=== PATIENT | male | born 1995 | race Caucasian/White ===

== ENCOUNTER 2016-10-27 04:08 | Emergency (ER) | payer BC ==
[~2016-10-27] VITALS: Ht 177.8 cm; Wt 84.1 kg
[2016-10-27] MEDS ORDERED: ZOFRAN8 MG PO (04:34)
[2016-10-27 05:21] LABS: ADJUSTED CALCIUM 8.8 mg/dL (8.4-10.2); ALBUMIN 4.9 gm/dL (3.5-5.0); BILIRUBIN,TOTAL 1.3 mg/dL (0.0-1.0); CALCIUM 9.5 mg/dL (8.4-10.2); CREATININE, serum 1.07 mg/dL (0.66-1.25); POTASSIUM 3.6 mmol/L (3.4-5.0); TOTAL PROTEIN 8.2 gm/dL (6.4-8.2)
[2016-10-27 05:55] VITALS: BP 119/67; PULSE 75
== END 2016-10-27 06:00 | disposition home or self-care (01) ==
LOC: COL.ER 04:08
PROVIDERS: Emergency Medicine
DX: E86.9 Volume depletion, unspecified (principal); R10.84 Generalized abdominal pain; R11.10 Vomiting, unspecified; R19.7 Diarrhea, unspecified
CPT/HCPCS: J1885; J2405; J7030

== ENCOUNTER 2017-03-16 01:55 | Emergency (ER) | payer BC ==
[~2017-03-16] VITALS: Ht 177.8 cm; Wt 84.1 kg
[~2017-03-16 01:55] MED LIST: ZOFRAN8 MG PO
[2017-03-16 02:03] VITALS: TEMP 97.7
[2017-03-16 02:14] LABS: BASO # 0.1 (0.0-0.2); BASO % 0.6 % (0.0-2.0); EOS # 0.2 (0.0-0.7); EOS % 1.7 % (0-4.0); GRAN # 5.9 (1.4-6.5); GRAN % 49.9 % (42.2-75.2); HEMATOCRIT 44.6 % (42.0-52.0); HEMOGLOBIN 15.7 g/dl (13.5-18.0); LYMPH # 4.8 (1.2-3.4); LYMPH % 40.9 % (20.0-51.0); MEAN CELL VOLUME 91 fl (80.0-100.0); MEAN CORPUSCULAR HEMOGLOBIN 32 pg (27.0-31.0); MEAN CORPUSCULAR HGB CONC 35 g/dl (33.0-37.0); MEAN PLATELET VOLUME 10.1 fl (7.4-10.4); MONO # 0.8 (0.1-0.6); MONO % 6.6 % (1.7-9.3); PLATELET COUNT 294 K/mm3 (130-400); RED BLOOD COUNT 4.91 M/mm3 (4.20-5.60); WHITE BLOOD COUNT 11.8 K/mm3 (4.8-10.8)
[2017-03-16 02:35] LABS: ADJUSTED CALCIUM 9.2 mg/dL (8.4-10.2); ALBUMIN 4.6 gm/dL (3.5-5.0); BILIRUBIN,TOTAL 0.5 mg/dL (0.0-1.0); CALCIUM 9.7 mg/dL (8.4-10.2); CREATININE, serum 0.95 mg/dL (0.66-1.25); POTASSIUM 3.3 mmol/L (3.4-5.0); TOTAL PROTEIN 7.7 gm/dL (6.4-8.2)
[2017-03-16 03:23] LABS: COLLECTION METHOD CLEAN CATCH
[2017-03-16 03:28] LABS: MUCOUS Present /lpf; PH 5 (5-8); SQUAMOUS EPITHELIAL None Seen /hpf; URINE APPEARANCE Clear; URINE BACTERIA None Seen /hpf; URINE BILIRUBIN Negative (NEGATIVE); URINE BLOOD 3+ (NEGATIVE); URINE COLOR Yellow; URINE GLUCOSE Negative (NEGATIVE); URINE KETONE Negative (NEGATIVE); URINE LEUKOCYTE ESTERASE Negative (NEGATIVE); URINE PROTEIN(semi-quant) Negative (NEGATIVE); URINE RBC 20-50 /hpf; URINE UROBILINOGEN Negative (NEGATIVE); URINE WBC 0-2 /hpf
[2017-03-16 03:51] VITALS: BP 132/71; PULSE 73
== END 2017-03-16 03:57 | disposition home or self-care (01) ==
LOC: COL.ER 01:55
PROVIDERS: Emergency Medicine
DX: N20.2 Calculus of kidney with calculus of ureter (principal); Z87.442 Personal history of urinary calculi
CPT/HCPCS: J1885; J2270; J2405; J3010; J7030